=== PATIENT | male | born 2000 | race African-American/Black ===

== ENCOUNTER 2022-07-26 13:32 | Emergency (ER) | payer BC, SELFPAY ==
[2022-07-26 13:58] VITALS: BP 131/60; PULSE 106; RESP 18; TEMP 39.3; O2SAT 99
[2022-07-26] MEDS: ACETAMINOPHEN 325 MG TABLET 650 MG PO (14:08)
[2022-07-26] MEDS: IBUPROFEN 600 MG TABLET PO (14:08)
[2022-07-26 15:04] LABS: Influenza A QL RT-PCR Positive (Negative); Influenza B QL RT-PCR Negative (Negative); RSV RNA, RT-PCR Negative (Negative); SARS-CoV-2 RNA PCR Negative
[2022-07-26 16:52] VITALS: TEMP 36.9
--- NOTE | 2022-07-26 16:56 | ED.GENADULT ---
HPI - General Adult General Chief complaint: Nausea/Vomiting/Diarrhea Stated complaint: vomiting Time Seen by Provider: 07/26/22 16:47 History of Present Illness HPI narrative: Patient is a 22-year-old male presenting with nausea and general malaise. Patient states that for the last 2 days he has been feeling generally unwell. States that he was barely able to go to class or get out of bed yesterday. This morning he continued to feel very poorly so he had his roommates bring him in for evaluation. States that he feels very nauseated but has not vomited. States that he has been coughing a lot. Also reports a sore throat. He denies headache, numbness or weakness, chest pain, shortness of breath, abdominal pain, leg swelling, diarrhea. Patient has not had his flu shot yet this year. Related Data Allergies Allergy/AdvReac Type Severity Reaction Status Date / Time No Known Allergies Allergy Verified 07/26/22 14:03 Review of Systems Review of Systems: All systems reviewed & are unremarkable except as noted in HPI and below Exam Narrative: GENERAL: Well-appearing, well-nourished, and in no acute distress. HEAD: Normocephalic, atraumatic. EYES: PERRLA and EOMI. ENT: Nares clear, no rhinorrhea or epistaxis. Mucous membranes moist. NECK: Supple. CHEST: Clear to auscultation. No respiratory distress. HEART: Regular rate and rhythm. No murmur heard. Normal peripheral pulses. ABDOMEN: Soft, nontender, nondistended, normal active bowel sounds. EXTREMITIES: Normal range of motion. No edema. SKIN: Warm, dry, no rash. NEURO: No focal deficits. Alert and oriented x3. PSYCH: Normal mood and affect. Course Vital Signs Vital signs: Vital Signs Temperature 102.8 F H 07/26/22 13:58 Pulse Rate 106 H 07/26/22 13:58 Respiratory Rate 18 07/26/22 13:58 Blood Pressure 131/60 07/26/22 13:58 Pulse Oximetry 99 07/26/22 13:58 Temperature 98.5 F 07/26/22 18:22 Pulse Rate 98 07/26/22 18:24 Respiratory Rate 16 07/26/22 18:24 Blood Pressure 131/60 07/26/22 13:58 Pulse Oximetry 100 11/08/22 18:24 Medical Decision Making MDM Narrative Medical decision making narrative: Patient is a 22-year-old male presenting with general malaise and nausea. Patient was initially febrile and tachycardic. He was given Tylenol and ibuprofen prior to my exam and his tachycardia and fever have resolved. Patient is positive for influenza A. Patient given Zofran and was able to tolerate p.o. intake. Discussed appropriate supportive care. Recommended PCP follow-up. Patient voiced understanding and is agreeable with plan. Discharged in stable condition. Vital Signs Vital Signs: Vital Signs Temperature 102.8 F H 07/26/22 13:58 Pulse Rate 106 H 07/26/22 13:58 Respiratory Rate 18 07/26/22 13:58 Blood Pressure 131/60 07/26/22 13:58 Pulse Oximetry 99 07/26/22 13:58 Temperature 98.5 F 07/26/22 18:22 Pulse Rate 98 07/26/22 18:24 Respiratory Rate 16 07/26/22 18:24 Blood Pressure 131/60 07/26/22 13:58 Pulse Oximetry 100 07/26/22 18:24 Lab Data Labs: Lab Results 07/26/22 Range/Units 14:09 Influenza A (RT-PCR) Positive (Negative) Influenza B (RT-PCR) Negative (Negative) RSV (RT-PCR) Negative (Negative) SARS-CoV-2 RNA (RT-PCR) Negative Critical Care Time Critical Care Time Critical Care Time: No Discharge Plan Discharge Clinical Impression: Influenza A Patient Disposition: Home, Self-Care Condition: Stable Instructions: Antibiotic Form, Influenza (DC) Additional Instructions: Please stay home and get plenty of rest. Please make sure that you drink plenty of fluids. We have prescribed cough medicine and antinausea medicine to be used as needed. If your symptoms suddenly worsen, you develop shortness of breath or chest pain, or other concerning symptoms arise, please return to the ER. Prescriptions: New benzonatate 100 mg capsule 1
[2022-07-26] MEDS: ONDANSETRON HCL ODT 4 MG TABLET PO (17:04)
[2022-07-26 18:22] VITALS: TEMP 36.9
[2022-07-26 18:24] VITALS: PULSE 98; RESP 16; O2SAT 100
== END 2022-07-26 18:25 | disposition home or self-care (01) ==
PROVIDERS: Emergency Medicine; Emergency Provider Emergency Medicine
DX: J10.1 Influenza due to other identified influenza virus with other respiratory manifestations (principal); Z20.822 Contact with and (suspected) exposure to COVID-19
CPT/HCPCS: 87637; 99283; A9270

== ENCOUNTER 2023-06-26 09:29 | Observation (INO) | payer BC, SELFPAY ==
[2023-06-26] VITALS (23 sets, daily range): BP systolic 105–145; BP diastolic 65–85; PULSE 55–74; RESP 16–21; TEMP 36.4–37; O2SAT 96–100; BMI 26.6
--- NOTE | ~2023-06-26 | CT_ITS ---
EXAMINATION: CT brain wo con DATE: 06/26/2023 10:03 INDICATION: Dizziness. TECHNIQUE: Computed tomography (CT) of the head was performed without intravenous contrast. The mA wa s adjusted according to patient size. Iterative reconstruction technique was employed. The dose-lengt h product was 605.33 mGy-cm. COMPARISON: None FINDINGS: There is no intracranial hemorrhage, acute infarction, or abnormal intracranial mass lesion . The ventricles are normal in size. The orbits are normal. The paranasal sinuses are clear. The mast oid air cells are normal. IMPRESSION: 1. Normal brain. Reviewed, dictated and finalized at location A. IMPRESSION: 1. Normal brain.
--- NOTE | ~2023-06-26 | XR_ITS ---
EXAMINATION: XR chest 2V DATE: 06/26/2023 10:16 INDICATION: Syncope. Weakness. TECHNIQUE: Frontal and lateral views of the chest were obtained. COMPARISON: None. FINDINGS: There is no pneumonia, pleural effusion, or pneumothorax. The heart size is normal. IMPRESSION: 1. No acute cardiopulmonary disease. Reviewed, dictated and finalized at location A.
--- NOTE | ~2023-06-26 | MR_ITS ---
EXAMINATION: MR brain/brain stem wo/w con DATE: 06/26/2023 17:48 INDICATION: dizziness TECHNIQUE: Magnetic resonance imaging (MRI) of the brain and brainstem was performed without and with 16 mL MultiHance intravenous contrast. Sequences included sagittal and axial T1-weighted SE, axial d iffusion-weighted FS EPI ASSET, axial T2*-weighted GRE, axial T2-weighted FLAIR Propeller, and axial T2-weighted Propeller. Postcontrast axial and coronal T1-weighted SE was obtained. Apparent diffusion coefficient (ADC) maps were created. COMPARISON: CT brain, same date. FINDINGS: No abnormal restricted diffusion to suggest acute ischemic infarct. No MRI evidence of hemorrhage or extra-axial collection. No suspicious foci of susceptibility to suggest prior intraparenchymal hemorr harry. Normal white matter signal. No evidence of advanced or lobar predominant parenchymal volume los s. The basilar cisterns are patent. Flow voids are preserved. Paranasal sinuses are within normal metcalf its. Globes and orbital contents are within normal limits. Prominent adenoids. No abnormal enhancing lesion. IMPRESSION: Prominent adenoids. Otherwise normal MR brain findings. Reviewed, dictated and finalized at location K.
--- NOTE | 2023-06-26 09:41 | ECG_ITS ---
Measurements Intervals [place] Rate: 64 P: 75 MD: 185 QRS: 39 QRSD: 82 T: 38 QT: 355 QTc: 367 Interpretive Statements SINUS RHYTHM POSSIBLE LEFT ATRIAL ENLARGEMENT [-0.1mV P WAVE IN V1/V2] BORDERLINE ECG NO PREVIOUS ECG AVAILABLE FOR COMPARISON Electronically Signed On 06-26-2023 12:22:48 CDT by Markell Ramirez M.D.
--- NOTE | 2023-06-26 09:45 | ED.SYNCOPE ---
HPI - Syncope General Chief Complaint: Syncope <GWEN Gallegos Last Filed: 06/26/23 13:54> Stated Complaint: syncopy <GWEN Gallegos Last Filed: 06/26/23 13:54> Time Seen by Provider: 06/26/23 09:39 <GWEN Gallegos Last Filed: 06/26/23 13:54> Source: patient <GWEN Gallegos Last Filed: 06/26/23 13:54> Mode of arrival: EMS <GWEN Gallegos Last Filed: 06/26/23 13:54> Limitations: no limitations <GWEN Gallegos Last Filed: 06/26/23 13:54> History of Present Illness HPI narrative: This is a 22-year-old male that presents to the emergency department for a syncopal episode today. Reports since yesterday morning he has been feeling room spinning dizziness intermittently. Reports this morning he was feeling dizzy and was walking into his bedroom and trying to get into his bed. Reports he passed out. He denied any chest pain, palpitations, or shortness of breath. Reports some nausea. Denies vomiting or focal numbness or weakness. <GWEN Gallegos Last Filed: 06/26/23 13:54> Related Data Home Medications: Home Medications Medication Instructions Recorded Confirmed No Home Medications 06/26/23 06/26/23 <GWEN Gallegos Last Filed: 06/26/23 13:54> Allergies/Adverse Reactions: Allergies Allergy/AdvReac Type Severity Reaction Status Date / Time sumatriptan Allergy Hives Verified 06/26/23 09:41 <GWEN Gallegos Last Filed: 06/26/23 13:54> Review of Systems Review of Systems: CONSTITUTIONAL: Denies fever EYES: Denies visual changes CARDIOVASCULAR: Denies chest pain, palpitations, or edema. RESPIRATORY: Denies dyspnea. GASTROINTESTINAL: Reports nausea. Denies vomiting NEUROLOGIC: Denies headache, numbness, or weakness. <GWEN Gallegos Last Filed: 06/26/23 13:54> All systems reviewed & are unremarkable except as noted in HPI and below <Miracle Hanley PA-C - Last Filed: 06/26/23 13:54> PMFSH Past Medical History Medical History: Medical History (Updated 06/26/23 @ 16:52 by Gena Lemons APRN) Migraine Myocarditis No active medical problems <Miracle Hanley PA-C - Last Filed: 06/26/23 13:54> Family History Family History: Family History (Updated 06/26/23 @ 16:49 by Gena Lemons APRN) Mother Hypertension Father Diabetes mellitus <Miracle Hanley PA-C - Last Filed: 06/26/23 13:54> Social History Social History: Social History (Updated 06/26/23 @ 16:50 by Gena Lemons APRN) Social History: From [place] but 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 HEAD: Normocephalic, atraumatic. EYES: PERRLA and EOMI. ENT: Nares clear, no rhinorrhea or epistaxis. Mucous membranes moist. Oropharynx without tonsillar hypertrophy exudate or other lesions. Bilateral TMs pearly barrios non-bulging NECK: Supple. No adenopathy or masses. No JVD CHEST: Clear to auscultation. No respiratory distress. No wheezes rales or rhonchi HEART: Regular rate and rhythm. No murmur heard. Normal peripheral pulses. EXTREMITIES: Normal range of motion. No edema. SKIN: War
[2023-06-26 10:02] LABS: Basophils Percent Auto 0.5 % (0.2-1.2); Eosinophils Absolute Auto 0.1 K/mm3 (0-0.3); Eosinophils Percent Auto 1.9 % (0-4.4); Hemoglobin 15.7 g/dL (14.0-18.0); Immature Granulocyte Absolute 0.01 K/mm3 (0.00-0.031); Immature Granulocyte Percent A 0.3 % (0-0.5); Lymphocytes Absolute Auto 1.36 K/mm3 (0.9-3.2); Lymphocytes Percent Auto 36.9 % (18.3-44.2); Mean Corpuscular HGB Conc 34.1 g/dl (32-36); Mean Corpuscular Hemoglobin 29.8 pg (26-34); Mean Corpuscular Volume 87.5 fl (80-100); Mean Platelet Volume 10.7 fl (7.4-10.4); Monocytes Absolute Auto 0.4 K/mm3 (0.1-0.6); Monocytes Percent Auto 9.8 % (2.6-8.5); Neutrophils Absolute Auto 1.9 K/mm3 (1.3-6.7); Neutrophils Percent Auto 50.6 % (45.5-73.1); Platelet Count Result 216 k/mm3 (150-375); Red Blood Count 5.26 M/mm3 (4.6-6.20); Red Cell Distribution Width 12.4 % (11.5-14.5); White Blood Count 3.7 K/mm3 (4.5-10.0)
[2023-06-26 10:14] LABS: Alanine Aminotransferase 86 U/L (6-50); Albumin Level 4.7 g/dL (3.5-5.1); Alkaline Phosphatase 65 U/L (38-126); Anion Gap 3 mmol/L (8-16); Aspartate Amino Transferase 62 U/L (17-59); Bilirubin,Total 0.9 mg/dL (0.2-1.3); Blood Urea Nitrogen 10 mg/dL (9-20); Calcium 9.5 mg/dL (8.4-10.2); Carbon Dioxide 33 mmol/L (22-30); Chloride 101 mmol/L (98-107); Estimated CRCL calculation 107 ml/min; Estimated Glomerular Filt Rate > 60; Glucose 94 mg/dL (65-110); Potassium 4.5 mmol/L (3.4-5.0); Sodium 137 mmol/L (137-145)
[2023-06-26] MEDS: ONDANSETRON INJ 4 MG/2 ML VIAL IV PUSH (10:14)
[2023-06-26] MEDS: MECLIZINE HCL 25 MG TABLET PO (10:14)
[2023-06-26] MEDS: SODIUM CHLORIDE 0.9% IV 1,000 ML 999 ML IV CONT ×2 (10:14→12:03)
[2023-06-26 10:24] LABS: Troponin I < 0.012 ng/mL (0.000-0.034)
[2023-06-26 11:16] LABS: Influenza A QL RT-PCR Negative (Negative); Influenza B QL RT-PCR Negative (Negative); SARS-CoV-2 RNA PCR Negative (Negative)
[2023-06-26] MEDS: diazePAM INJ (*CRX) 10 MG/2 ML SYRINGE 5 MG IV PUSH (12:03)
[2023-06-26 12:21] LABS: Monoscreen Negative (Negative)
[2023-06-26 12:22] LABS: Negative Monotest Control Negative (Negative); Positive Monotest Control Positive (Positive)
--- NOTE | 2023-06-26 15:09 | PC.NURSE ---
This patient, Grant Irby, was admitted to Medical Room 342-01. Patient/family oriented to hospital policies and general routines including ID bracelet, bed and alarms, visiting hours, pain management, procedures, bathroom and other care routines, personal items, smoking policy, room service/diet, and visiting hours. Information on how to activate the Rapid Response Team has been discussed. Patient/Family are encouraged to report perceived risks to care and to ask questions if they do not understand what they are told or what they should do.
--- NOTE | 2023-06-26 16:23 | PM.IMHP ---
H&P: HPI History of Present Illness Date/Time: 06/26/23 16:23 Chief Complaint: Dizziness and syncope Narrative: This is a 22-year-old male with a past medical history of myocarditis and migraines. He presents the hospital after experiencing dizziness and a syncopal episode. 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 He says that starting around 4:00 a.m. on Monday morning he started experiencing vertigo. When he is resting in bed the sensation is decreased but still present. Movement increases the sensation. This morning he said he walked to the bathroom and on his way back to bed he had a syncopal episode. No one was there to witness it however he said he was on the phone with his girlfriend who side it lasts about a minute. He does not think that he hit his head. He also reports a migraine headache over the last 48 hours and one episode of nausea. Usually he takes Tylenol and this helps however his migraine but this time it has persisted despite Tylenol. He had issues with migraines in high school for which he was put on sumatriptan, however he developed hives so that medication was discontinued and no different agent was started. He states that he has migraines almost every day. He also reports decreased sensation to the left side of his face, arm and leg. He denies vision changes. In the ER labs were significant for WBC of 3.7 and mild transaminitis. Vital signs are stable. CT head was negative for acute intracranial process. Chest x-ray was normal and respiratory panel negative. An Allison remover was performed with the patient CT head increased dizziness. He was given meclizine, Valium, Zofran, and 2 L of NS. He feels like the meclizine helped but at the Valium made him feel loopy. He is being admitted for 23 hour observation for workup of dizziness with a syncopal episode and telemetry monitoring. 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 Gender identity (if verbalized by the patient): Male Spiritual care concerns: No Meds Home Medications and Allergies Home Medications Medication Instructions Recorded Confirmed Type No Home Medications 06/26/23 06/26/23 History Allergies Allergy/AdvReac Type Severity Reaction Status Date / Time sumatriptan Allergy Hives Verified 06/26/23 09:41 Vital Signs Vital Signs - 24 hr 06/26/23 09:31 06/26/23 09:37 06/26/23 09:39 Temperature 97.6 F Pulse Rate 62 66 Respiratory Rate 16 Blood Pressure 134/85 Pulse Oximetry 100 100 Oxygen Delivery Room Air Room Air 06/26/23 11:11 06/26/23 11:01 06/26/23 11:13 Temperature Pulse Rate 58 L 61 61 Respiratory Rate 20 18 Blood Pressure 120/78 126/80 120/78 Pulse Oximetry 98 100 Oxygen Delivery 06/26/23 11:15 06/26/23 11:16 06/26/23 11:30 Temperature 98.1 F Pulse Rate 74
[2023-06-26 18:23] LABS: Anion Gap 2 mmol/L (8-16); Blood Urea Nitrogen 9 mg/dL (9-20); Calcium 9.1 mg/dL (8.4-10.2); Carbon Dioxide 33 mmol/L (22-30); Chloride 103 mmol/L (98-107); Estimated CRCL calculation 107 ml/min; Estimated Glomerular Filt Rate > 60; Glucose 76 mg/dL (65-110); Sodium 138 mmol/L (137-145)
[2023-06-26 19:09] LABS: Amphetamine Screen Urine Negative (Negative); Barbiturate Screen Urine Negative (Negative); Benzodiazepines Screen Urine Negative (Negative); Cannabinoid Screen Urine Negative (Negative); Cocaine Screen Urine Negative (Negative); Methadone Screen Urine Negative (Negative); Opiate Screen Urine Negative (Negative); Phencyclidine Screen Urine Negative (Negative)
[2023-06-26] MEDS: TOPIRAMATE 25 MG TABLET PO (20:28)
[2023-06-27] VITALS (8 sets, daily range): BP systolic 132–144; BP diastolic 80–86; PULSE 52–85; RESP 16–18; TEMP 36.1–36.5; O2SAT 99–100
[2023-06-27] MEDS: MECLIZINE HCL 25 MG TABLET PO ×3 (00:33→20:34)
[2023-06-27 06:09] LABS: Basophils Percent Auto 0.3 % (0.2-1.2); Eosinophils Absolute Auto 0.1 K/mm3 (0-0.3); Eosinophils Percent Auto 2.3 % (0-4.4); Hematocrit 43.6 % (42.0-52.0); Hemoglobin 14.6 g/dL (14.0-18.0); Immature Granulocyte Absolute 0.01 K/mm3 (0.00-0.031); Immature Granulocyte Percent A 0.3 % (0-0.5); Lymphocytes Absolute Auto 1.57 K/mm3 (0.9-3.2); Lymphocytes Percent Auto 44.6 % (18.3-44.2); Mean Corpuscular HGB Conc 33.5 g/dl (32-36); Mean Corpuscular Hemoglobin 29.4 pg (26-34); Mean Corpuscular Volume 87.9 fl (80-100); Monocytes Absolute Auto 0.4 K/mm3 (0.1-0.6); Monocytes Percent Auto 10.8 % (2.6-8.5); Neutrophils Absolute Auto 1.5 K/mm3 (1.3-6.7); Neutrophils Percent Auto 41.7 % (45.5-73.1); Platelet Count Result 223 k/mm3 (150-375); Red Blood Count 4.96 M/mm3 (4.6-6.20); Red Cell Distribution Width 12.4 % (11.5-14.5); White Blood Count 3.5 K/mm3 (4.5-10.0)
--- NOTE | 2023-06-27 06:33 | PC.NURSE ---
pt cont to c/o dizziness. unrelieved by one dose of prn antivert. ambulates to br with min assist of one and walker. gait unsteady. incontinent of urine times one this shift. remains a&ox3. vss. 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 smile symmetrical.
--- NOTE | 2023-06-27 09:41 | PM.IMPN ---
Progress Note: A&P Assessment and Plan (1) Migraine: Code(s): G43.909 - Migraine, unspecified, not intractable, without status migrainosus Status: Acute Assessment and Plan: History of migraines and currently has had a h/a for the last 24 hours trial dose of Fioricet start on Topamax 25 mg BID meclizine prn for dizziness Zofran from nausea suspect his focal symptoms are related to the migraine resolved after fiorcet and started on topamax (2) Syncope: Qualifiers: Syncope type: unspecified Qualified Code(s): R55 - Syncope and collapse Code(s): R55 - Syncope and collapse Status: Acute Assessment and Plan: unwitnessed collapse on telemetry SR-SB blood pressure reviewed and are stable vasovagal vs c/o migraine vs orthostasis Obtain orthostatic vital signs UDS ordered was negative (3) Myocarditis: Code(s): I51.4 - Myocarditis, unspecified Status: Acute Assessment and Plan: 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 WBC normal, afebrile, no chest pain Plan Feeding:general diet Analgesia:Fioricet, Tylenol Thromboembolic prophylaxis: n/a Ulcer prophylaxis: n/a Glycemic control: n/a Bowel regimen: n/a Lines: PIV Antibiotics:n/a Disposition: home with self care Attempt to reconcile migraine and hope to see focal deficits resolve. Consult neuro as migraine has resolved but he is still dizzy and having left sided weakness. ECHO ordered---pending collection EEG ordered PT consult for ataxia re-check CMP for mild transaminitis seen on admission labs ---normalized. Subjective Date/time seen: 06/27/23 09:41 Interval history: Chief Complaint: Dizziness and syncope Narrative: This is a 22-year-old male with a past medical history of myocarditis and migraines.? He presents the hospital after experiencing dizziness and a syncopal episode.? 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 He says that starting around 4:00 a.m. on Monday morning he started experiencing vertigo.? When he is resting in bed the sensation is decreased but still present. Movement increases the sensation.? This morning he said he walked to the bathroom and on his way back to bed he had a syncopal episode.? No one was there to witness it however he said he was on the phone with his girlfriend who side it lasts about a minute.? He does not think that he hit his head.? He also reports a migraine headache over the last 48 hours and one episode of nausea. Usually he takes Tylenol and this helps however his migraine but this time it has persisted despite Tylenol.? He had issues with migraines in high school for which he was put on sumatriptan, however he developed hives so that medication was discontinued and no different agent was started.? He states that he has migraines almost every day. He also reports decreased sensation to the left side of his face, arm and leg.? He denies vision changes. In the ER labs were significant for WBC of 3.7 and mild transaminitis.? Vital signs are stable.? CT head was negative for acute intracranial process.? Chest x-ray was normal and respiratory panel negative.? An Allison remover was performed with the patient CT head increased dizziness.? He was given meclizine, Valium, Zofran, and 2 L of NS.? He feels like the meclizine helped but at the Valium made him feel loopy.? He is being admitted for 23 hour observation for workup of dizziness with a syncopal episode and telemetry monitoring. 06/27-I spoke with Grant today and his migraine has resolved however he continues to have dizziness wi
[2023-06-27] MEDS: TOPIRAMATE 25 MG TABLET PO ×2 (09:47→20:34)
[2023-06-27 10:18] LABS: Alanine Aminotransferase 65 U/L (6-50); Alkaline Phosphatase 59 U/L (38-126); Anion Gap 7 mmol/L (8-16); Aspartate Amino Transferase 47 U/L (17-59); Bilirubin,Total 0.7 mg/dL (0.2-1.3); Blood Urea Nitrogen 12 mg/dL (9-20); Calcium 9.2 mg/dL (8.4-10.2); Carbon Dioxide 26 mmol/L (22-30); Chloride 105 mmol/L (98-107); Estimated CRCL calculation 98 ml/min; Estimated Glomerular Filt Rate > 60; Glucose 90 mg/dL (65-110); Potassium 4.6 mmol/L (3.4-5.0); Sodium 138 mmol/L (137-145)
[2023-06-28] VITALS: PULSE 58
--- NOTE | 2023-06-28 | ECHO_ITS ---
Patient Info Name: Grant Irby Age: 22 years : 2000 Gender: Male Ht: 70 in Wt: 160 lbs BSA: 1.89 m2 HR: 60 bpm BP: 114 / 55 mmHg Heart Rhythm: Sinus Rhythm Technical Quality: Fair Exam Date: 06/28/2023 11:09 AM Exam Location: [facility] Pulmonary Exam Room: 342 Patient Status: Outpatient Admit Date: 06/26/2023 Staff Ordering Physician: Gena Lemons APRN Stoneworking Sander: Evangelina Pemberton RDCS Attending Provider: Sin Berrios MD Referring Physician: Vesta FARIAS; Exam Type: CA echo doppler w bubble study Study Info Indications - syncopal episode and collaspe Complete two-dimensional, color flow and Doppler transthoracic echocardiogram is performed with agitated saline. Contrast/Agitated Saline Contrast/Ag. Saline: Agitated Saline Amount: 20.00 ml Administered By: Ana George RDCS Existing IV Access: Yes IV Access Condition: patent with no signs of infiltration Summary 1. Left ventricular chamber dimension is normal. 2. Left ventricular systolic function is normal, estimated at 60-65%. 3. The left ventricular diastolic function is normal. 4. E/e' 6 is not elevated. 5. There is trace mitral valve regurgitation. 6. There is trace tricuspid valve regurgitation. 7. No pulmonary hypertension, estimated pulmonary arterial systolic pressure is 29 mmHg. 8. There is trace pulmonic regurgitation. Left Ventricle E/e' 6 is not elevated. Left ventricular chamber dimension is normal. Left ventricular systolic function is normal, estimated at 60-65%. The left ventricular diastolic function is normal. Right Ventricle Right ventricular chamber dimension is normal. Right ventricular systolic function is normal. Left Atria Left atrial chamber dimension is normal. Right Atria Right atrial chamber dimension is normal. Atrial Septum Agitated saline injection with and without valsalva maneuver opacified right side cardiac chambers without shunt to left side cardiac chambers. Intact interatrial septum visualized by 2D and agitated saline imaging. Aortic Valve The aortic valve is trileaflet. There is no aortic valve stenosis. There is no aortic valve regurgitation. Pulmonic Valve There is trace pulmonic regurgitation. Mitral Valve There is no mitral valve stenosis. There is trace mitral valve regurgitation. Tricuspid Valve There is trace tricuspid valve regurgitation. No pulmonary hypertension, estimated pulmonary arterial systolic pressure is 29 mmHg. Pericardium/Pleural There is no pericardial effusion. Inferior Vena Cava Normal inferior vena cava with >50% collapse upon inspiration consistent with normal right atrial pressure, 5 mmHg. Aorta The aortic root size at the sinus of Valsalva is normal. Left Ventricular Outflow Tract Name Value Normal LVOT 2D LVOT Diameter 2.0 cm LVOT Doppler LVOT Peak Gradient 5 mmHg LVOT Mean Gradient 3 mmHg LVOT VTI 18 cm LVOT VTI/AV VTI Ratio 1.0 LVOT Stroke Volume 56 ml LVOT CO 14.0 l/min
[2023-06-28 04:00] VITALS: PULSE 55
[2023-06-28 05:06] VITALS: BP 114/55; PULSE 55; RESP 14; TEMP 36.3; O2SAT 99
[2023-06-28 06:01] LABS: Basophils Percent Auto 0.3 % (0.2-1.2); Eosinophils Absolute Auto 0.1 K/mm3 (0-0.3); Eosinophils Percent Auto 2.7 % (0-4.4); Hematocrit 45.4 % (42.0-52.0); Hemoglobin 15.7 g/dL (14.0-18.0); Lymphocytes Absolute Auto 1.49 K/mm3 (0.9-3.2); Lymphocytes Percent Auto 44.5 % (18.3-44.2); Mean Corpuscular HGB Conc 34.6 g/dl (32-36); Mean Corpuscular Volume 86.8 fl (80-100); Mean Platelet Volume 10.7 fl (7.4-10.4); Monocytes Absolute Auto 0.3 K/mm3 (0.1-0.6); Monocytes Percent Auto 9.3 % (2.6-8.5); Neutrophils Absolute Auto 1.5 K/mm3 (1.3-6.7); Neutrophils Percent Auto 43.2 % (45.5-73.1); Platelet Count Result 236 k/mm3 (150-375); Red Blood Count 5.23 M/mm3 (4.6-6.20); Red Cell Distribution Width 12.1 % (11.5-14.5); White Blood Count 3.4 K/mm3 (4.5-10.0)
[2023-06-28 06:11] LABS: Alanine Aminotransferase 58 U/L (6-50); Albumin Level 4.5 g/dL (3.5-5.1); Alkaline Phosphatase 62 U/L (38-126); Anion Gap 5 mmol/L (8-16); Aspartate Amino Transferase 35 U/L (17-59); Bilirubin,Total 0.6 mg/dL (0.2-1.3); Blood Urea Nitrogen 18 mg/dL (9-20); Calcium 9.6 mg/dL (8.4-10.2); Carbon Dioxide 29 mmol/L (22-30); Chloride 102 mmol/L (98-107); Estimated CRCL calculation 90 ml/min; Estimated Glomerular Filt Rate > 60; Glucose 121 mg/dL (65-110); Potassium 4.3 mmol/L (3.4-5.0); Sodium 136 mmol/L (137-145)
[2023-06-28 08:04] VITALS: PULSE 58
[2023-06-28] MEDS: TOPIRAMATE 25 MG TABLET PO (08:33)
--- NOTE | 2023-06-28 09:30 | WPDNEUROLOGY ---
Neurology EEG Report General Information Date of Study: 06/28/23 TEST eeg DIAGNOSIS Seizures CONDITION OF RECORDING awake drowsy and sleep EEG NUMBER [id number] CLINICAL HISTORY patient very drowsy and only history he could give that he has lost consciousness couple of days ago and since then he remains dizzy and weak. EEG DESCRIPTION Basic resting occipital frequency consists of well-organized low to medium voltage 9 to 11 hertz per 2nd alpha admixed with low-voltage 15 to 18 hertz per 2nd beta. Low-voltage beta activity seen diffusely admixed with waxing and waning posterior alpha rhythm during drowsiness. Alpha activity symmetrically block with eyes opening. Bilateral symmetrical sleep activity seen during sleep with normal and symmetrical sleep spindles as well. Hyperventilation not done. Photic stimulation not done. Non paroxysmal. Nonfocal. Nonlateralizing. IMPRESSION Normal record.
--- NOTE | 2023-06-28 11:05 | WPDNEURCNPN ---
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 3 normal nonfocal neuro exam at this particular time Consult date: 06/28/23 HPI: Grant Irby is a 22 year old maleAdmitted to the hospital through the emergency room for a syncopal episode,reportedly patient has been feeling dizzy for [id number] and when he was taken to his bedroom, he almost passed out ,he gave no history of any other associated symptomatology except mild nausea ,he is not taking any home medications and is allergic to sumatriptan, his initial examination in the emergency room was nonfocal, he does have ongoing history of migraine, myocarditis, he has never a smoker never a drinker initial exam in the emergency room was nonfocal, his vital signs were normal ,his influenza and covidi screens were negative ,CT scan of the brain was normal but he continued to complain of dizziness even after receiving the fluids and Zofran and meclizine and Valium in the emergency room, CBC was normal except WBC 3.7, BMP was normal and other complete lab was also negative ,EKG was without any atrial fibrillation PMFSH Past Medical History Medical History (Updated 06/28/23 @ 11:16 by Amari Morocho MD) Migraine Myocarditis No active medical problems Family History Family History (Updated 06/26/23 @ 16:49 by Gena Lemons APRN) Mother Hypertension Father Diabetes mellitus Social History Social History (Updated 06/26/23 @ 16:50 by Gena Lemons APRN) Social History: From [place] but 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 Gender identity (if verbalized by the patient): Male Spiritual care concerns: No Meds Home Medications and Allergies Home Medications Medication Instructions Recorded Confirmed Type No Home Medications 06/26/23 06/26/23 History Allergies Allergy/AdvReac Type Severity Reaction Status Date / Time sumatriptan Allergy Hives Verified 06/26/23 09:41 Vital Signs Vital Signs - 24 hr 06/27/23 12:00 06/27/23 16:00 06/27/23 20:00 Temperature 36.3 C L Pulse Rate 71 69 85 Respiratory Rate 16 Blood Pressure 132/86 Pulse Oximetry 100 Oxygen Delivery 06/27/23 20:00 06/27/23 20:00 06/28/23 00:00 Temperature Pulse Rate 85 80 58 L Respiratory Rate 16 Blood Pressure Pulse Oximetry 100 Oxygen Delivery Room Air 06/28/23 04:00 06/28/23 05:06 06/28/23 08:32 Temperature 36.3 C L Pulse Rate 55 L 55 L Respiratory Rate 14 Blood Pressure 114/55 L Pulse Oximetry 99 Oxygen Delivery Room Air Exam Narrative: revealed him to be awake alert cooperative in no obvious acute distress ,head normocephalic with no cranial bruit ,ear nose throat examination was normal, neck was supple with no cervical bruits, no thyromegaly ,no lymphadenopathy, heart was regular with no murmur no irregularity ,lungs were clear with no crepitations ,abdomen soft nontender normal bowel sounds neurological examination revealed him to be awake alert cooperative i
[2023-06-28 12:05] VITALS: PULSE 66
--- NOTE | 2023-06-28 12:22 | PM.DS ---
DS: Admitting Diagnosis Discharge Date 06/28/2023 Admitting Diagnosis Migraine, syncope, myocarditis (history of) DS: Discharge Diagnosis Discharge Diagnosis (1) Migraine: Code(s): G43.909 - Migraine, unspecified, not intractable, without status migrainosus Status: Acute (2) Syncope: Qualifiers: Syncope type: unspecified Qualified Code(s): R55 - Syncope and collapse Code(s): R55 - Syncope and collapse Status: Acute (3) Stress reaction: Code(s): F43.0 - Acute stress reaction Status: Acute (4) Myocarditis: Code(s): I51.4 - Myocarditis, unspecified Status: Chronic Plan Discharge home, recommend counseling for ongoing stress management DS: Summary Hospital Course Reason for hospitalization: Neurologic problems of migraine with syncope and left sided weakness Hospital Course: This is a 22-year-old male patient with history viral myocarditis as a child and migraine headaches who is admitted to the hospital for a conglomeration unexplained neurologic symptoms including left-sided weakness headache drowsiness syncope forgetfulness with waxing and waning of symptoms. Patient underwent neurologic evaluation, CT scan of the brain MRI of the brain and EEG with normal findings. Patient's symptoms were recurrent and somewhat situational. On day of discharge I spoke with patient for approximately 1 hour regarding his schooling, job and family stressors. Patient reports that his symptoms are likely related to significant stress. 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 Preceding patient's presentation to the emergency department he was working a 24 hour shift and he was awakened at 4:00 a.m. for a 911 call where he felt he did not function well and his symptoms started shortly after. Patient reports that he went home and slept for about 18 hours then was unable to work on his school work, got upset and ended up passing out. This prompted his visit to emergency department. After having this long conversation patient reports immediate relief and clearance of remaining symptoms. He reports that he is feeling and ready to go. His mother is driving down from [place]. Status at Discharge Cognitive/behavioral status at discharge: awake, alert, oriented and pleasant Functional status at discharge: independent ambulation Overall status at discharge: patient is back to baseline Time Spent with Patient Time attestation: Total time spent providing and/or coordinating discharge services: 45 minutes Time spent: Greater than 30 minutes Exam Narrative: General: well appearing, well developed, well nourished, appears stated age. HEENT: normocephalic, atraumatic. Mucous membranes moist. EOMI, PERRLA, bilateral sclera anicteric, no conjunctival injection. Neck supple without JVD, lymphadenopathy, or bruit. Respiratory: clear to auscultation bilaterally. No rales/rhonchi/wheezes. Cardiovascular: Regular rate and rhythm, normal S1-S2 upon auscultation. No murmurs, rubs, or clicks. PMI is nondisplaced, capillary re-fill less than 3 second. Abdomen: Soft, flat, no pulsatile masses, non-distended and non-tender. No rebound, no guarding. No CVA tenderness, no hepatosplenomegaly. Bowel sounds present to all four quadrants. Extremities: No cyanosis, clubbing, or edema present. Pulses are palpable 2/2. Active ROM to all four extremities. Neuro: Alert and orientated x 4. PERRLA. Cranial nerves 2-12 intact, 5/5 strength to BUE and BLE, no gross/focal neurologic deficits noted. Skin: Warm, dry, and intact, without rash, erythema, or lesion. Lines:PIV Incisions: N/a Psych: pleasant, cooperative, normal speech, normal affect, no hallucinations, no dysarthria DS: Data Data Completed and Pending Labs on day of discharge: Labs from last 24 hours 06/28/23 05:50 WBC 3.4 L RBC 5.23 Hgb 15.7 Hct 45.4
[2023-06-28 15:20] VITALS: BP 121/63; PULSE 73; RESP 20; TEMP 36.9; O2SAT 100
== END 2023-06-28 16:30 | disposition home or self-care (01) ==
LOC: ANHED 13:54 → ANH3MED 06-27 10:28
PROVIDERS: Nurse Practitioner Acute Care; Admitting Provider Chiropractor; Emergency Provider Physician Assistant; Visit Provider Internal Medicine
DX: G43.909 Migraine, unspecified, not intractable, without status migrainosus (principal); R55 Syncope and collapse; F43.0 Acute stress reaction; I51.4 Myocarditis, unspecified; R11.0 Nausea; R74.01 Elevation of levels of liver transaminase levels; Z20.822 Contact with and (suspected) exposure to COVID-19; Z82.49 Family history of ischemic heart disease and other diseases of the circulatory system; Z83.3 Family history of diabetes mellitus
CPT/HCPCS: 36415; 70450; 70553; 71046; 80048; 80053; 80307; 84443; 84484; 85025; 86308; 87636; 93005; 93306; 95816; 96361; 96374; 96375; 97161; 99285; A9270; A9577; G0378; G0379; J2405; J3360; J7030